=== PATIENT | male | born 1950 | race Caucasian/White ===

== ENCOUNTER 2023-10-09 14:38 | Emergency (ER) | payer OTHER, MEDICARE ==
[~2023-10-09] VITALS: Ht 175.3 cm; Wt 104.3 kg
[2023-10-09 14:46] VITALS: BP_SYST 117; PULSE 89; RESP 19; TEMP 98; O2SAT 99
[2023-10-09] MEDS ORDERED: ZAN4 PO (16:44)
[2023-10-09 16:58] VITALS: BP_SYST 117; PULSE 89; RESP 19; TEMP 98; O2SAT 99
== END 2023-10-09 16:58 | disposition home or self-care (01) ==
LOC: SED 14:38
DX: Z04.1 Encounter for examination and observation following transport accident (principal); I10 Essential (primary) hypertension; Z79.899 Other long term (current) drug therapy
CPT/HCPCS: 72040-TC; 73560-TC; 99284